=== PATIENT | male | born 1960 | race Caucasian/White ===

== ENCOUNTER 2019-12-01 11:49 | Outpatient (REF) | payer MEDICAID, SELFPAY ==
[2019-12-01 22:41] LABS: ALT 34 U/L (16-63); AST 22 U/L (15-37); Anion Gap 8.8 mmol/L (3-11); BUN 8 mg/dL (7-18); CO2 28.2 mmol/L (21.0-32.0); CREATININE 0.89 mg/dL (0.70-1.30); Calculated LDL 99 mg/dL; Chloride 104 mmol/L (98-107); Cholesterol 162 mg/dL (<200); Glucose 101 mg/dL (74-106); HDL Cholesterol 49 mg/dL (40-60); Potassium 4.8 mmol/L (3.5-5.1); Sodium 141 mmol/L (136-145); Triglyceride 70 mg/dL (<150)
== END 2019-12-01 12:09 ==
LOC: NCHCN 11:49
PROVIDERS: PCP Nurse Practitioner Family; Visit Provider Nurse Practitioner Family
DX: Z13.220 Encounter for screening for lipoid disorders (principal); Z13.228 Encounter for screening for other metabolic disorders; Z00.00 Encounter for general adult medical examination without abnormal findings
CPT/HCPCS: 80048; 80061; 84450; 84460

== ENCOUNTER 2022-02-21 14:09 | Outpatient (REF) | payer MEDICAID, SELFPAY ==
[2022-02-21 16:22] LABS: HCT 44.4 % (40.0-50.0); HGB 14.5 g/dL (13.5-17.5); MCH 29.7 pg (27.0-33.0); MCHC 32.7 % (32.0-36.0); MCV 90.8 fL (80-95); MPV 9.9 fL (8.0-11.0); Platelet Count 248 10^3/uL (130-400); RBC 4.89 10^6/uL (4.36-5.78); RDW 13.2 % (11.8-14.1); RDW-SD 44.3 fL; WBC 8.84 10^3/uL (4.4-10.8)
[2022-02-21 16:29] LABS: Anion Gap 7.4 mmol/L (3-11); BUN 15 mg/dL (7-18); CO2 27.6 mmol/L (21.0-32.0); CREATININE 1.2 mg/dL (0.70-1.30); Calcium 9.2 mg/dL (8.5-10.1); Chloride 104 mmol/L (98-107); Glucose 107 mg/dL (74-106); Potassium 4.9 mmol/L (3.5-5.1); Sodium 139 mmol/L (136-145)
[2022-02-24 09:42] LABS: PSA, Screening 4.8 ng/mL (<=4.5)
== END 2022-02-21 14:10 | disposition home or self-care (01) ==
LOC: NCHCN 14:09
PROVIDERS: PCP Nurse Practitioner Family; Visit Provider Nurse Practitioner Family
DX: Z13.228 Encounter for screening for other metabolic disorders (principal); Z13.0 Encounter for screening for diseases of the blood and blood-forming organs and certain disorders involving the immune mechanism; Z12.5 Encounter for screening for malignant neoplasm of prostate; Z00.00 Encounter for general adult medical examination without abnormal findings
CPT/HCPCS: 80048; 84153; 85027

== ENCOUNTER 2022-05-01 17:39 | Outpatient (REF) | payer MEDICAID, SELFPAY ==
[2022-05-02 18:27] LABS: PSA, Screening 4.9 ng/mL (<=4.5)
== END 2022-05-01 17:40 | disposition home or self-care (01) ==
LOC: NCHCN 17:39
PROVIDERS: PCP Nurse Practitioner Family; Visit Provider Nurse Practitioner Family
DX: Z12.5 Encounter for screening for malignant neoplasm of prostate (principal)
CPT/HCPCS: 84153

== ENCOUNTER 2022-12-22 03:22 | Outpatient (CLI) | payer MEDICAID, SELFPAY ==
[2022-12-23 19:40] LABS: PSA, Diagnostic 5.2 ng/mL (<=4.5)
== END 2022-12-22 03:23 | disposition home or self-care (01) ==
LOC: LBO 03:22
PROVIDERS: PCP Nurse Practitioner Family; Visit Provider Urology
DX: R97.20 Elevated prostate specific antigen [PSA] (principal)
CPT/HCPCS: 36415; 84153

== ENCOUNTER 2023-06-26 02:17 | Outpatient (CLI) | payer MEDICAID, SELFPAY ==
[2023-06-26 19:58] LABS: PSA, Diagnostic 5.6 ng/mL (<=4.5)
== END 2023-06-26 02:18 | disposition home or self-care (01) ==
LOC: LBO 02:17
PROVIDERS: PCP Nurse Practitioner Family; Visit Provider Urology
DX: R97.20 Elevated prostate specific antigen [PSA] (principal)
CPT/HCPCS: 36415; 84153

== ENCOUNTER 2023-10-15 14:19 | Outpatient (REF) | payer MEDICAID, SELFPAY ==
--- NOTE | 2023-10-15 14:20 | PROST_PTH ---
PATIENT: Zac Kebede LOC: [facility] U#:[id number] AGE/SX: 63/M ROOM: RE10/15/[address]: Emmett Griffiths MD : 1960 BED: DIS: 10/15/2023 SPEC #: [id number] RECD: 10/15/23 17:22 STATUS: VALERIANO REQ #: [id number] MIKO: 10/15/23 14:[address]: Emmett Griffiths DEPT: Surgical Specimen RECD BY: Sarah Weiner ENTERED: 10/15/23 17:23 SP TYPE: PROST OTHR DR: Marielle Love Tissues: 1 - PROSTATE NEEDLE BIOPSY 2 - PROSTATE NEEDLE BIOPSY 3 - PROSTATE NEEDLE BIOPSY 4 - PROSTATE NEEDLE BIOPSY 5 - PROSTATE NEEDLE BIOPSY 6 - PROSTATE NEEDLE BIOPSY 7 - PROSTATE NEEDLE BIOPSY 8 - PROSTATE NEEDLE BIOPSY 9 - PROSTATE NEEDLE BIOPSY 10 - PROSTATE NEEDLE BIOPSY 11 - PROSTATE NEEDLE BIOPSY 12 - PROSTATE NEEDLE BIOPSY Procedures: GROSS AND MICRO LEVEL 4 Comments: [id number]
== END 2023-10-15 14:20 | disposition home or self-care (01) ==
LOC: LBN 14:19
PROVIDERS: PCP Nurse Practitioner Family; Visit Provider Urology
DX: R97.20 Elevated prostate specific antigen [PSA] (principal); C61 Malignant neoplasm of prostate
CPT/HCPCS: 88305

== ENCOUNTER → 2023-11-04 03:08 | Outpatient (CLI) | payer MEDICAID, SELFPAY ==
--- NOTE | 2023-11-04 07:45 | DI.NM_ITS ---
Exam(s) NM BONE SCAN WHOLE BODY GRP EXAM: NM BONE SCAN WHOLE BODY GRP CLINICAL HISTORY: baseline for new dx,PROSTATE CA,C61. TECHNIQUE: Injected Dose: 25 mCi Tc-99m MDP Delayed Images formed at 3 hours post-injection COMPARISON: No exams were available for comparison FINDINGS: Is a small focus of increased uptake seen in the superior acetabulum on the right side probably degen erative. Similar finding on the left side. Mild increased uptake in the medial right knee is most p robably degenerative. No significant abnormal uptake seen in the remainder of the pelvis nor within the spinal column nor in the skull and long bones. IMPRESSION: There is no evidence of osseous metastatic disease. DATA REPOSITORY:
== END ==
PROVIDERS: PCP Nurse Practitioner Family; Visit Provider Urology
DX: C61 Malignant neoplasm of prostate (principal)
CPT/HCPCS: 78306

== ENCOUNTER 2024-01-07 12:53 | Outpatient (REF) | payer MEDICAID, SELFPAY ==
[2024-01-07 14:47] LABS: HGB 15.1 g/dL (13.5-17.5); MCH 28.9 pg (27.0-33.0); MCHC 32.8 % (32.0-36.0); MCV 88 fL (80-95); MPV 9.4 fL (8.0-11.0); Platelet Count 256 10^3/uL (130-400); RBC 5.23 10^6/uL (4.36-5.78); RDW 13.3 % (11.8-14.1); RDW-SD 43.2 fL; WBC 7.99 10^3/uL (4.4-10.8)
[2024-01-07 15:01] LABS: ALT 31 U/L (16-63); AST 19 U/L (15-37); Albumin 4.1 g/dL (3.4-5.0); Alkaline Phosphatase 89 U/L (46-116); Anion Gap 8.5 mmol/L (3-11); BUN 13 mg/dL (7-18); Bilirubin, Total 0.5 mg/dL (0.2-1.0); CO2 28.5 mmol/L (21.0-32.0); CREATININE 1.1 mg/dL (0.70-1.30); Calcium 9.7 mg/dL (8.5-10.1); Calculated LDL 128 mg/dL (<100); Chloride 106 mmol/L (98-107); Cholesterol 201 mg/dL (<200); Estimated GFR 74.96 (mL/min/1.73m2); Glucose 101 mg/dL (74-106); HDL Cholesterol 59 mg/dL (40-60); Potassium 5.6 mmol/L (3.5-5.1); Sodium 143 mmol/L (136-145); Total Protein 7.8 g/dL (6.4-8.2); Triglyceride 73 mg/dL (<150)
[2024-01-07 16:29] LABS: Hemoglobin A1C 5.7 % (<5.7)
== END 2024-01-07 12:54 | disposition home or self-care (01) ==
LOC: NCHCN 12:53
PROVIDERS: PCP Nurse Practitioner Family; Referring Provider Nurse Practitioner Family; Visit Provider Nurse Practitioner Family
DX: Z00.00 Encounter for general adult medical examination without abnormal findings (principal); Z68.28 Body mass index [BMI] 28.0-28.9, adult; E66.9 Obesity, unspecified
CPT/HCPCS: 80053; 80061; 85027; 83036

== ENCOUNTER 2024-02-11 19:28 | Outpatient (REF) | payer MEDICAID, SELFPAY ==
[2024-02-11 16:05] LABS: Anion Gap 11.1 mmol/L (3-11); BUN 16 mg/dL (7-18); CO2 25.9 mmol/L (21.0-32.0); Calcium 9.5 mg/dL (8.5-10.1); Chloride 107 mmol/L (98-107); Estimated GFR 84.05 (mL/min/1.73m2); Glucose 96 mg/dL (74-106); Potassium 5.3 mmol/L (3.5-5.1); Sodium 144 mmol/L (136-145)
[2024-02-11 17:29] LABS: Vitamin D 25 Total 31.7 ng/mL (30-100)
== END 2024-02-11 19:29 | disposition home or self-care (01) ==
LOC: NCHCN 19:28
PROVIDERS: PCP Nurse Practitioner Family; Visit Provider Nurse Practitioner Family
DX: E87.5 Hyperkalemia (principal); E55.9 Vitamin D deficiency, unspecified
CPT/HCPCS: 80048; 82306

== ENCOUNTER 2024-03-01 15:55 | Outpatient (REF) | payer MEDICAID, SELFPAY | END 2024-03-01 15:56 | disposition home or self-care (01) | LOC: LBN 15:55 | PROVIDERS: PCP Nurse Practitioner Family; Visit Provider Urology | DX: R39.89 Other symptoms and signs involving the genitourinary system (principal) | CPT/HCPCS: 87086 ==

== ENCOUNTER 2024-07-19 05:00 | Outpatient (CLI) | payer MEDICAID, SELFPAY ==
[2024-07-22 12:50] LABS: PSA, Ultrasensitive <0.01 ng/mL (<= 4.5)
== END 2024-07-19 05:01 | disposition home or self-care (01) ==
PROVIDERS: PCP Nurse Practitioner Family; Visit Provider Urology
DX: C61 Malignant neoplasm of prostate (principal)
CPT/HCPCS: 36415; 84153

== ENCOUNTER 2024-08-12 10:23 | Outpatient (REF) | payer MEDICAID, SELFPAY ==
[2024-08-12 16:02] LABS: Anion Gap 6.9 mmol/L (3-11); BUN 12 mg/dL (7-18); CO2 28.1 mmol/L (21.0-32.0); CREATININE 1.1 mg/dL (0.70-1.30); Calcium 9.2 mg/dL (8.5-10.1); Chloride 105 mmol/L (98-107); Glucose 91 mg/dL (74-106); Potassium 4.5 mmol/L (3.5-5.1); Sodium 140 mmol/L (136-145)
== END 2024-08-12 10:24 | disposition home or self-care (01) ==
LOC: NCHCN 10:23
PROVIDERS: PCP Nurse Practitioner Family; Visit Provider Nurse Practitioner Family
DX: E87.5 Hyperkalemia (principal)
CPT/HCPCS: 80048

== ENCOUNTER → 2024-09-22 08:57 | Outpatient (BNVA) | payer MEDICARE, SELFPAY | PROVIDERS: PCP Nurse Practitioner Family; Referring Provider Nurse Practitioner Family; Visit Provider Physical Therapy Assistant | DX: Z12.11 Encounter for screening for malignant neoplasm of colon (principal) ==

== ENCOUNTER 2024-10-28 09:53 | Day surgery (SDC) | payer MEDICARE, SELFPAY ==
--- NOTE | 2024-10-27 21:31 | HPE_ITS ---
Date of service: 10/28/24 Time of Service: 11:34 Assessment and Plan Assessment and plan (1) Prostate cancer: Status: Chronic (2) Screening for malignant neoplasm of colon performed: Status: Acute Assessment and plan: Plan: Colonoscopy w/ general & natural airway. Informed consent is obtained for the procedural (explained in simple layman's terms that?the pt and/or family could understand) explaining risks vs benefits and alternatives to the procedure and consequences if we do not do the procedure and need/rational for the procedure. Risks include but are not limited to: bleeding, infection, perforation of colon.? This would necessitate emergency surgery to repair the damage w/ possible ostomy; and other associated complications w/ the required surgery. ? Also complications of anesthesia including aspiration, WA/CVA/, inability to complete the procedure. I discussed with the?patient would they could expect during the procedure, post procedure and recovery time and risks.? The patient understands that they need to have a ride home after the procedure.? Generally Colonoscopy does not require antibiotics prophylaxis, This document was created with voice activated software and may contain errors. 20 mins spent in direct pt care and 15 in non face to face time History of Present Illness Narrative: Patient is here today for colonoscopy for CRC screening.??? They completed a bowel prep with just a clear yellow residual effluent.? They not having any chest pain or shortness of breath, currently.? They are not experiencing any fever or chills.? They deny any productive cough or upper respiratory tract infection signs or symptoms.? They are not having abdominal pain, or nausea and vomiting.? They have not had any changes in medications, past medical history or past surgical history since previously being seen in the office. They have not had any accidents or have been in the ER since the clinic pre-operative evaluation. ??I reviewed the procedure with the patient today, including risks and benefits of the procedure, and what they could expect at home for recovery.? All questions are answered to the patient?s satisfaction today, and they are stable to proceed with the proposed procedure. He denies a family history of colon cancer. He has not had any bowel habit changes. -Discussed colonoscopy bowel prep as well as the procedure. Discussed possible complications of the procedure to include bleeding, pain, perforation, missed small lesion/polyp, sore throat, aspiration and adverse reaction to the medications. Questions were answered to patient?s satisfaction. No guarantees were implied or given. Anesthesia: general (without airway) Previous surgical intolerances: None Previous surgical complications: None Pulmonary risk factors: None PFT's: None Planned procedure: Yes Sleep apnea risks: No Can climb one flight of stairs (12-13 steps) in less than 30 seconds without stopping and without symptoms: Yes The surgery proposed for this patient is: Low risk Active cardiac conditions: None ECHO: None Stress Test: None Active risk factors: None ASA (acetylsalicylic acid):No Beta blockers: No Anti-coagulation: N/A Medications to be held: All vitamins and supplements x 5 days prior. 64 y/o male with history of migraines and s/p prostectomy presents for co lonoscopy screening pre-op. He denies a family history of colon cancer. He denies any changes in bowel habits including bloody or black tarry stools, abdominal pain, diarrhea or constipation. He denies constitutional symptoms. He denies chest pain, palpitations, dyspnea or dyspnea with exertion. He denies prior history or family history of adverse reactions or complications with anesthesia. The patient denies any history of stroke, WA, seizures, bleeding or clotting disorders. He denies having any implanted metal in his body. Review of Systems All systems reviewed & are unremarkable except as noted in HPI and below PFSH All Active Problems Screening for malignant neoplasm of colon performed (Acute) Left inguinal hernia (Acute) Prostate cancer (Chronic) Peyronie's disease (Acute) Medical History Elevated PSA Erectile dysfunction Decreased hearing of right ear Pain in joint involving left pelvic region and thigh Disc degeneration, lumbar Migraine Social History Smoking/Tobacco Use Status: Never Smoking risk assessment performed?: Yes Alcohol Intake: current Alcohol Intake frequency: a few times a week Alcohol type: beer Drug use: Never Substance use type: does not use Housing: condominium Do you feel safe at home: Yes Do you feel safe in your relationship?: Yes Meds Allergies and Home Medications Allergies Allergy/AdvReac Type Severity Reaction Status Date / Time Penicillins Allergy Intermediate Dizziness/L Verified 10/28/24 10:32 ighthead Home Medications ?Medication ?Instructions ?Recorded ?Confirmed ?Type zrluiwq-sajnmpcxphour-ynsozvir 250 2 tab PO ONCE PRN 02/04/24 10/28/24 History mg-250 mg-65 mg tablet (Excedrin Migraine) Exam Narrative Exam Narrative: PHYSICAL EXAM GENERAL APPEARANCE: Alert, healthy appearance, oriented, x 3,? in no acute distress HYDRATION: Well hydrated HEAD, EYES, EARS, NECK, THROAT: Head is normocephalic, pupils equal, round, reactive to light and accommodation, ocular movement intact, sclera clear and no jaundice. ?Dentition intact. LUNGS: normal respiration/normal chest excursion. ?Clear to auscultation bilaterally. ?No wheeze. ?HEART: Regular rate and rhythm. no murmurs ABDOMEN: soft and non-tender to palpation.? Normal bowel sounds.? Time Spent Time spent with Patient: <40 minutes Time was spent: preparing to see the patient(eg.review tests), obtaining and/or reviewing separately otained hiistory, ordering medications,tests, procedures, referring, communicating with other health career discovery teacher, indepentently interpreting results, counseling the patient, care coordination and other
--- NOTE | 2024-10-27 21:40 | PDOC.DSDIS_ITS ---
Date of service: 10/28/24 Discharge Plan Disposition Patient Disposition: Home Condition: Good Discharge Details Attending Provider: Faith Tracy Primary Care Provider: Marielle Love Home Meds and New Rx's Prescriptions: Continued Excedrin Migraine 250-250-65 mg tablet 2 tab PO ONCE PRN Discontinued bisacodyl [Dulcolax (bisacodyl)] 5 mg tablet,delayed release (DR/EC) 5 mg PO ONCE Qty: 4 0RF Rx Instructions: Take per colonoscopy instructions provided by ordering providers office polyethylene glycol 3350 17 gram/dose powder 17 g PO ONCE Qty: 238 0RF Rx Instructions: Take per colonoscopy instructions provided by ordering providers office Discharge Instructions Additional Instructions: DSU Colonoscopy Post- Op Instructions Instructions for Everyone who is given Anesthesia: For your safety, please do the following for the next twenty-four (24) hours: *Do Not operate a motor vehicle (car, truck, motorcycle, etc.) *Do Not drink alcoholic beverages or use any recreational drugs for the first 24 hours or while taking pain medications. The medications in your body may have a reaction that can be dangerous. *Do Not make any important decisions or sign any important papers. Findings:polyps] Diverticula-make sure you are moving your bowels on a regular basis and not straining. If you find you are having problems with constipation or straining, then is recommended you start a fiber product such as Metamucil. Follow up: My office will send you a letter in 2 to 3 weeks time with the results of the polyps and when you should repeat your colonoscopy, roughly 7 years time 1. No lifting over 20 pounds or strenuous activity for the first 24 hours after your procedure. After 24 hours there are no restrictions on your activity but you may feel fatigued for a few days. 2. After you arrive home you may have a light meal and return to your normal diet as you can tolerate it without feeling sick to your stomach. 3. You may have a bloated, gaseous feeling in your belly (abdomen) after a colonoscopy. Passing gas and belching will help. Walking or lying down on your left side with your knees flexed may relieve the discomfort. Call the office at [phone] (Office) or [phone] (Hospital) right away if you notice any of the following: a.Vomiting of blood or ?coffee ground stools?. b.Rectal bleeding 1Tbsp, blood clots or continuous bleeding. c.Severe belly (abdominal) pain. d.A hard distended belly (abdomen) and an inability to pass gas. 4. Please don?t expect to have a normal BM (bowel movement) for 2-3 days after your procedure. 5. If there are questions regarding the findings of your procedure, please contact your doctor 6. If you are unable to contact your doctor with a problem, contact the hospital at [phone]. 7. Continue all your regular medications unless directed otherwise. I understand the above instructions and have no questions. Signature of Patient or Adult Escort Name of Responsible Adult Escort Signature of Nurse Date/Time Activity:: see above Diet:: see above Discharge Orders Discharge Orders: Discharge Order (Routine); Ordered 10/28/24 Ordered By: Faith Tracy DS: Diagnosis Discharge Diagnosis (1) Prostate cancer: Status: Chronic (2) Screening for malignant neoplasm of colon performed: Status: Acute Asessment and Plan: The patient is seen and examined after their colonoscopy.? The patient has been able to pass gas.? They are not having abdominal pain.? They have been able to tolerate liquids and a snack.? They do not have any nausea or vomiting.? They are not having any chest pain or shortness of breath.??? They are not having any rectal bleeding. Their vital signs have been stable-see nursing notes. We discussed findings during their colonoscopy, and any biopsies that were done/polyps that were removed. The patient will be sent a letter with any biopsy results, and when to repeat the colonoscopy.-see discharge instructions. Patient was given explicit instructions to follow-up regarding colonoscopy-refer to discharge instructions.? We reviewed resumption of medications. Patient verbalized understanding and discharged in stable and satisfactory condition- See nursing notes. (3) Adenomatous polyps: Status: Acute (4) Diverticula of colon: Status: Acute
--- NOTE | 2024-10-27 21:42 | COLE_ITS ---
Date of service: 10/28/24 Time of Service: 12:39 Colonoscopy Report Date of procedure: 10/28/24 Pre-op diagnosis general: CRC screening Post-op diagnosis procedure note: other (polyps and diverticula ) Surgeon: Faith Tracy Anesthesia Type: General:No Airway Estimated blood loss (mL): 1 Pathology: other Complications: None Disposition: same day Prep: Miralax/Dulcolax Retraction Time: 14 Procedure Description: After informed consent was obtained, explaining risks of the procedure, including but not limits to: bleeding, infections, complications of anesthesia, perforations (which may require antibiotics and /or surgery and stay in the hospital), and abdominal pain/cramping. The patient was taken to the procedure room and placed in a left decubitous position. Monitors were applied and a time out was done. The patients name, date of , procedure, allergies to medications and metal in their body was reviewed. The patient was then sedated. Once sedated and comfortable a rectal exam was done. External exam was normal. Internal exam revealed a normal sphincter tone and no palpable masses. The prostate is absent The previously lubricated Olympus scope was then introduced (see RN notes for scope number) and retrofelexed. No internal hemorrhoids were identified. The scope was then advanced to the cecum without difficulty. The TI and appendiceal orifice were identified. The scope was then slowly retracted over 14 minutes back into the rectum. Polyps: A flat, .75cm polyp was found at 70cm. This was removed with a cold biting forceps. All of the specimen was retrieved. This will be sent to pathology. There is no bleeding noted from the polypectomy site. Diverticula: pt had a moderate amount of varied sized- mouthed diverticula in the left colon that do carry all the way over to the mid transverse colon.. There were no signs of active bleeding or infection. The mucosa is pink and healthy w/ a normal vascular pattern. The scope was removed, and the patient was woken up and taken back to Same day surgery in stable condition. The patient tolerated the procedure well and there were no immediate complications. Follow up: The patient should follow up in ~7 years, unless they develop changes in bowel habits or other new gastrointestinal complaints. [place] Bowel Prep [place] Bowel Prep Right Colon: 2 Left Colon: 3 Transverse Colon: 3 Total Score: 8
[2024-10-28 10:33] VITALS: BP 135/89; PULSE 98; RESP 20; TEMP 36.5; O2SAT 97
--- NOTE | 2024-10-28 10:42 | W.ANESPRE ---
General Info Date of Service Date Performed: 10/28/24 Height: 6 ft 2 in Weight: 95.8 kg Body Mass Index (BMI): 27.1 Surgical Procedure: Operation Date: 10/28/24 10:05 Proposed Procedure Side Surgeon gary Tracy DO Meds Allergies and Home Medications Allergies Allergy/AdvReac Type Severity Reaction Status Date / Time Penicillins Allergy Intermediate Dizziness/L Verified 10/28/24 10:32 ighthead Home Medication ?Medication ?Instructions ?Recorded sdtucez-srwrltxabwgnb-dmnyblua 250 2 tab PO ONCE PRN 02/04/24 mg-250 mg-65 mg tablet (Excedrin Migraine) Current Visit Medications: Current Medications Generic Name Dose Route Start Last Admin Trade Name Freq PRN Reason Stop Dose Admin Ringer's Solution 1,000 mls @ 80 mls/hr 10/28/24 06:00 IV 10/28/24 23:59 INFUSION EASTON IV Miscellaneous Supplies 1 each 10/28/24 06:00 Iv Access IV 10/28/24 23:59 DIRECTED EASTON Ondansetron HCl 4 mg 10/28/24 09:36 Ondansetron 4 Mg/2 Ml Vial IVP 11/27/24 09:35 Q4H PRN PRN Nausea / Vomiting Sodium Chloride 0 ml 10/28/24 06:00 Normal Saline Flush 10 Ml Syr IV 10/28/24 23:59 PRN PRN Sodium Chloride 0 ml 10/28/24 06:00 Normal Saline 10 Ml Vial IJ 10/28/24 23:59 DIRECTED PRN Sterile Water 0 ml 10/28/24 06:00 Water,Injection,Sterile 10 Ml Vial IJ 10/28/24 23:59 DIRECTED PRN PFSH Active Problems Active Problems: Problem Status Onset Code Screening for malignant neoplasm of colon performed Acute Z12.11 Left inguinal hernia Acute K40.90 Prostate cancer Chronic C61 Peyronie's disease Acute N48.6 Medical History Medical History Elevated PSA Erectile dysfunction Decreased hearing of right ear Pain in joint involving left pelvic region and thigh Disc degeneration, lumbar Migraine Tobacco Smoking/Tobacco Use Status: Never Alcohol Alcohol Intake: current Alcohol intake frequency: a few times a week Alcohol type: beer Substance Use Substance use: Never Substance use type: does not use Vital Signs and Lab Results Vital Signs Most Recent Vital Signs in EMR: Most Recent Vital Signs Temp Pulse Resp BP Pulse Ox 36.5 C 98 H 20 135/89 97 10/28/24 10:33 10/28/24 10:33 10/28/24 10:33 10/28/24 10:33 10/28/24 10:33 Lab Results Blood Type / Crossmatch: No Data to Display Complete Blood Count: No Data to Display Complete Metabolic Panel: No Data to Display Liver Function Panel: No Data to Display Coagulation Panel: No Data to Display Cardiac Panel: No Data to Display Arterial Blood Gas: No Data to Display Venous Blood Gas: No Data to Display Pancreas Panel: No Data to Display Thyroid Panel: No Data to Display Infectious Disease: No Data to Display Blood Cultures: No Data to Display Toxicology Panel: No Data to Display Anesthesia Assessment and Plan Anesthesia History Personal History: No History of Anesthesia Complications Family History: No Family History of Anesthesia Complications Exercise Tolerance Exercise Tolerance: Metabolic Equivalents>4 Pertinent Negatives Pertinent Negatives: No Symptoms of GERD, No Major Cardiovascular Symptoms or Complaints and No Major Pulmonary Symptoms or Complaints Cardiac & Pulmonary Exam Cardiac Exam: Normal S1/S2 Heart Sounds Pulmonary Exam: Clear Bilateral Breath Sounds Implantable Cardiac Device Does patient have a Pacemaker or an ICD?: No Airway Exam Known Difficult Airway: No Mallampati Class: 2 Mouth Opening: Normal (> 3cm) Thyromental Distance: Greater than 3 cm Neck Range of Motion: Full ROM Neck Circumference: Normal Teeth Condition: Normal Dentition ASA Classification ASA Score: ASA 2 Emergency Case?: No NPO Status NPO Status: NPO Clears >2 hours, Solids >8 hours Anesthesia Plan Resuscitation Status: Full Code Anesthesia Technique: General Anesthesia Airway Planned: Natural Airway Monitors Used: Standard Monitors
[2024-10-28 11:16] VITALS: BMI 27.1
--- NOTE | 2024-10-28 12:12 | BOWEL_PTH ---
PATIENT: Zac Kebede LOC: [facility] U#:[id number] AGE/SX: 64/M ROOM: RE10/28/[address]: Faith Tracy : 1960 BED: DIS: 10/28/2024 SPEC #: [id number] RECD: 10/28/24 13:27 STATUS: VALERIANO REQ #: [id number] MIKO: 10/28/24 12:[address]: Faith Tracy DEPT: Surgical Specimen RECD BY: Sarah Weiner ENTERED: 10/28/24 13:27 SP TYPE: Bowel OTHR DR: Marielle Love Tissues: 1 - BIOPSY BOWEL Procedures: GROSS AND MICRO LEVEL 4 Comments: [id number]
[2024-10-28 12:33] VITALS: BP 114/82; PULSE 84; RESP 16; TEMP 36.3; O2SAT 100
[2024-10-28 13:03] VITALS: BP 129/85; PULSE 64; RESP 16; TEMP 35.9; O2SAT 98
--- NOTE | 2024-10-28 13:03 | W.ANESPOSTOP ---
Postoperative Evaluation Date, Time and Location Date Performed: 10/28/24 Time Performed: 12:55 Patient Location: Day Surgery Unit Vital Signs Most Recent Imported Vital Signs: Most Recent Vital Signs Temp Pulse Resp BP Pulse Ox 36.3 C L 84 16 114/82 100 10/28/24 12:33 10/28/24 12:33 10/28/24 12:33 10/28/24 12:33 10/28/24 12:33 Pain Score Most Recent Pain Score: Most Recent Pain Score Pain Level 0 10/28/24 12:33 Assessment Mental Status: Awake (Alert & Oriented to Patient Baseline) Airway and Respiratory Function: Patent airway with normal (patient baseline) respiratory exam Cardiovascular Function: Hemodynamically Stable Hydration Status: Adequately Hydrated Nausea & Vomiting: No Nausea or Vomiting Pain: Pt. Denies Any Pain Peripheral Nerve Block: Patient did not receive a nerve block
== END 2024-10-28 13:36 | disposition home or self-care (01) ==
LOC: SUR 09:54
PROVIDERS: PCP Nurse Practitioner Family; Visit Provider Surgery
PROC: 0DJD8ZZ Inspection of Lower Intestinal Tract, Via Natural or Artificial Opening Endoscopic (ICD-10-PCS; CPT 45378; principal; 2024-10-28 10:00)
DX: Z12.11 Encounter for screening for malignant neoplasm of colon (principal); K57.30 Diverticulosis of large intestine without perforation or abscess without bleeding; K62.7 Radiation proctitis; D12.4 Benign neoplasm of descending colon
CPT/HCPCS: 45380; 88305; J2704

== ENCOUNTER 2025-01-11 08:46 | Outpatient (REF) | payer MEDICARE, SELFPAY ==
[2025-01-11 14:28] LABS: HCT 43.7 % (40.0-50.0); HGB 14.2 g/dL (13.5-17.5); MCHC 32.5 % (32.0-36.0); MCV 89 fL (80-95); MPV 9.8 fL (8.0-11.0); Platelet Count 229 10^3/uL (130-400); RBC 4.89 10^6/uL (4.36-5.78); RDW 13.3 % (11.8-14.1); RDW-SD 43.8 fL; WBC 6.37 10^3/uL (4.4-10.8)
[2025-01-11 16:12] LABS: ALT 25 U/L (16-63); AST 22 U/L (15-37); Albumin 3.8 g/dL (3.4-5.0); Alkaline Phosphatase 90 U/L (46-116); Anion Gap 5.1 mmol/L (3-11); BUN 15 mg/dL (7-18); Bilirubin, Total 0.56 mg/dL (0.2-1.0); CO2 29.9 mmol/L (21.0-32.0); Calcium 9.3 mg/dL (8.5-10.1); Calculated LDL 93 mg/dL (<100); Chloride 108 mmol/L (98-107); Cholesterol 161 mg/dL (<200); Estimated GFR 83.52 (mL/min/1.73m2); Glucose 91 mg/dL (74-106); HDL Cholesterol 60 mg/dL (40-60); Potassium 5.5 mmol/L (3.5-5.1); Sodium 143 mmol/L (136-145); Total Protein 7.1 g/dL (6.4-8.2); Triglyceride 40 mg/dL (<150)
[2025-01-11 16:25] LABS: COMMENT (LAB VIEW ONLY) 110.06 mg/dL; Microalb ug/mg Crea 4.5 ug/mg Cr
== END 2025-01-11 08:47 | disposition home or self-care (01) ==
LOC: NCHCN 08:46
PROVIDERS: PCP Nurse Practitioner Family; Visit Provider Nurse Practitioner Family
DX: E78.5 Hyperlipidemia, unspecified (principal); R73.03 Prediabetes; I10 Essential (primary) hypertension
CPT/HCPCS: 80053; 80061; 85027; 82043; 82570; 83036